=== PATIENT | female | born 1965 | race Native Hawaiian/Other Pacific Islander ===

== ENCOUNTER 2016-11-07 08:30 | Outpatient (CLI) | payer BC ==
[~2016-11-07] VITALS: Ht 162.6 cm; Wt 154.2 kg
[~2016-11-07 08:30] MED LIST: ALLEGRA-D 1212 HOUR OR; ASPIR-8181 MG OR; BENICAR HCT1 TAB PO; CETI10TA PO; CIPRO500 MG PO; FURO20TA67 PO; MICRO-K10 MEQ OR; NEXIUM40 M1 PO; SINGULAIR10 MG PO
== END 2016-11-07 19:46 | disposition home or self-care (01) ==
LOC: NM 08:30
DX: R07.89 Other chest pain (principal)
CPT/HCPCS: A9500; J2785

== ENCOUNTER 2018-01-15 12:12 | Outpatient (CLI) | payer BC ==
[2018-01-15 14:05] LABS: PLATELET COUNT 339 K/uL (152-353)
== END 2018-01-15 20:02 | disposition home or self-care (01) ==
LOC: RAD 12:12
PROVIDERS: Internal Medicine
DX: M25.551 Pain in right hip (principal); M54.5 Low back pain; R06.09 Other forms of dyspnea
CPT/HCPCS: 36415; 82785; 83880; 85027; 86003

== ENCOUNTER 2018-06-20 10:26 | Outpatient (CLI) | payer BC | END 2018-06-20 21:16 | disposition home or self-care (01) | LOC: MAMMO 10:26 | DX: Z12.31 Encounter for screening mammogram for malignant neoplasm of breast (principal) ==

== ENCOUNTER 2018-08-07 07:12 | Outpatient (CLI) | payer BC ==
[2018-08-07 07:40] LABS: PLATELET COUNT 295 K/uL (152-353)
== END 2018-08-07 20:09 | disposition home or self-care (01) ==
LOC: LABW 07:12
PROVIDERS: Internal Medicine
DX: I10 Essential (primary) hypertension (principal)
CPT/HCPCS: 36415; 80053; 80061; 81000; 84439; 84443; 85027

== ENCOUNTER 2018-08-26 08:20 | Outpatient (CLI) | payer BC ==
[2018-08-26 08:40] LABS: PLATELET COUNT 296 K/uL (152-353)
[2018-08-26 08:48] LABS: POTASSIUM 3.1 mmol/L (3.6-5.2)
== END 2018-08-26 19:50 | disposition home or self-care (01) ==
LOC: LABW 08:20
PROVIDERS: Obstetrics & Gynecology Gynecologic Oncology
DX: C54.1 Malignant neoplasm of endometrium (principal)
CPT/HCPCS: 36415; 80048; 85027; 93005

== ENCOUNTER 2018-12-10 14:52 | Outpatient (CLI) | payer BC, OTHER | END 2018-12-10 20:33 | disposition home or self-care (01) | LOC: US 14:52 | DX: M79.89 Other specified soft tissue disorders (principal) ==

== ENCOUNTER 2018-12-23 10:41 | Outpatient (CLI) | payer BC, OTHER | END 2018-12-23 19:59 | disposition home or self-care (01) | LOC: RAD 10:41 | DX: M25.571 Pain in right ankle and joints of right foot (principal) ==

== ENCOUNTER 2019-01-09 08:10 | Outpatient (CLI) | payer BC, OTHER | END 2019-01-09 19:33 | disposition home or self-care (01) | LOC: MRI 08:10 | DX: S93.401A Sprain of unspecified ligament of right ankle, initial encounter (principal) ==

== ENCOUNTER 2019-01-14 08:06 | Outpatient (CLI) | payer BC, OTHER ==
[~2019-01-14] VITALS: Ht 162.6 cm; Wt 132.9 kg
== END 2019-01-14 19:36 | disposition home or self-care (01) ==
LOC: NM 08:06
DX: R07.89 Other chest pain (principal)
CPT/HCPCS: A9500; J2785

== ENCOUNTER 2019-01-31 09:04 | Outpatient (CLI) | payer BC, OTHER ==
[2019-01-31 09:49] LABS: POTASSIUM 3.4 mmol/L (3.6-5.2)
[2019-01-31 09:50] LABS: PLATELET COUNT 314 K/uL (152-353)
== END 2019-01-31 22:26 | disposition home or self-care (01) ==
LOC: LABW 09:04
PROVIDERS: Specialist
DX: Z01.810 Encounter for preprocedural cardiovascular examination (principal); R93.1 Abnormal findings on diagnostic imaging of heart and coronary circulation
CPT/HCPCS: 36415; 80053; 85027

== ENCOUNTER 2019-05-14 08:16 | Outpatient (CLI) | payer BC, OTHER ==
[2019-05-14 08:36] LABS: PLATELET COUNT 269 K/uL (152-353)
[2019-05-14 08:54] LABS: POTASSIUM 3.6 mmol/L (3.6-5.2)
== END 2019-05-14 22:31 | disposition home or self-care (01) ==
LOC: LABW 08:16
PROVIDERS: Internal Medicine
DX: J45.909 Unspecified asthma, uncomplicated (principal); I10 Essential (primary) hypertension
CPT/HCPCS: 36415; 80053; 80061; 81000; 84443; 85027; 87086; 87088

== ENCOUNTER 2019-05-15 12:50 | Outpatient (CLI) | payer BC, OTHER | END 2019-05-15 23:48 | disposition home or self-care (01) | LOC: LABW 12:50 | DX: J45.909 Unspecified asthma, uncomplicated (principal) | CPT/HCPCS: 36415; 82785 ==

== ENCOUNTER 2019-07-04 11:38 | Outpatient (CLI) | payer BC, OTHER ==
[2019-07-04 12:04] LABS: POTASSIUM 3.8 mmol/L (3.6-5.2)
== END 2019-07-04 21:52 | disposition home or self-care (01) ==
LOC: LABW 11:38
PROVIDERS: Nurse Practitioner Adult Health
DX: R60.0 Localized edema (principal); Z79.899 Other long term (current) drug therapy
CPT/HCPCS: 36415; 80048

== ENCOUNTER 2019-11-20 08:12 | Outpatient (CLI) | payer BC, OTHER ==
[2019-11-20 09:14] LABS: POTASSIUM 3.8 mmol/L (3.6-5.2)
[2019-11-20 10:03] LABS: PLATELET COUNT 240 K/uL (152-353)
== END 2019-11-20 20:18 | disposition home or self-care (01) ==
LOC: LABW 08:12
PROVIDERS: Nurse Practitioner Adult Health
DX: I10 Essential (primary) hypertension (principal); Z79.899 Other long term (current) drug therapy
CPT/HCPCS: 36415; 80053; 80061; 81000; 84439; 84443; 84550; 85027

== ENCOUNTER 2019-12-23 10:57 | Outpatient (CLI) | payer BC, OTHER | END 2019-12-23 21:59 | disposition home or self-care (01) | LOC: MAMMO 10:57 | DX: Z12.31 Encounter for screening mammogram for malignant neoplasm of breast (principal) ==

== ENCOUNTER 2020-11-03 11:13 | Outpatient (CLI) | payer BC, OTHER | END 2020-11-03 20:21 | disposition home or self-care (01) | LOC: US 11:13 | PROVIDERS: ATTEND Internal Medicine | DX: E04.1 Nontoxic single thyroid nodule (principal) ==

== ENCOUNTER 2021-02-15 08:51 | Outpatient (CLI) | payer BC, OTHER | END 2021-02-15 21:07 | disposition home or self-care (01) | LOC: MAMMO 08:51 | PROVIDERS: ATTEND Nurse Practitioner Family | DX: C54.1 Malignant neoplasm of endometrium (principal); Z12.31 Encounter for screening mammogram for malignant neoplasm of breast ==

== ENCOUNTER 2021-12-15 08:39 | Outpatient (CLI) | payer OTHER, BC | END 2021-12-15 19:11 | disposition home or self-care (01) | LOC: CT 08:39 → LABW 08:39 → CT 09:00 → LABW 19:11 | PROVIDERS: ATTEND Internal Medicine | DX: R10.31 Right lower quadrant pain (principal) | CPT/HCPCS: 36415; 82565; 84520 ==

== ENCOUNTER 2021-12-19 07:49 | Outpatient (CLI) | payer OTHER, BC | END 2021-12-19 19:10 | disposition home or self-care (01) | LOC: CT 07:49 | PROVIDERS: ATTEND Internal Medicine | DX: R10.31 Right lower quadrant pain (principal) | CPT/HCPCS: Q9963 ==

== ENCOUNTER 2021-12-21 15:22 | Outpatient (CLI) | payer OTHER, BC ==
[2021-12-21 17:12] LABS: POTASSIUM 4.3 mmol/L (3.6-5.2)
[2021-12-21 17:22] LABS: PLATELET COUNT 258 K/uL (152-353)
== END 2021-12-21 19:51 | disposition home or self-care (01) ==
LOC: LAB 15:22
PROVIDERS: ATTEND Internal Medicine
DX: I10 Essential (primary) hypertension (principal); E11.9 Type 2 diabetes mellitus without complications; R10.31 Right lower quadrant pain; E66.01 Morbid (severe) obesity due to excess calories; E04.1 Nontoxic single thyroid nodule; J45.909 Unspecified asthma, uncomplicated
CPT/HCPCS: 80053; 80061; 83036; 84439; 84443; 85027

== ENCOUNTER 2022-02-15 17:45 | Outpatient (CLI) | payer OTHER, BC | END 2022-02-15 21:38 | disposition home or self-care (01) | LOC: LAB 17:45 | PROVIDERS: ATTEND Internal Medicine | DX: R30.0 Dysuria (principal) | CPT/HCPCS: 87077; 87086; 87088; 87186 ==

== ENCOUNTER 2022-10-06 10:48 | Outpatient (CLI) | payer OTHER, BC | END 2022-10-06 19:19 | disposition home or self-care (01) | LOC: US 10:48 | PROVIDERS: ATTEND Internal Medicine Endocrinology, Diabetes & Metabolism | DX: E04.2 Nontoxic multinodular goiter (principal) ==

== ENCOUNTER 2023-08-21 10:28 | Outpatient (CLI) | payer BC, OTHER | END 2023-08-21 19:02 | disposition home or self-care (01) | LOC: MAMMO 10:28 | PROVIDERS: ATTEND Internal Medicine | DX: N64.89 Other specified disorders of breast (principal) | CPT/HCPCS: G0279 ==